=== PATIENT | female | born 1955 | race Caucasian/White ===

== ENCOUNTER → 2023-02-28 10:21 | Outpatient (BNVA) | payer MEDICARE, MEDICAID, SELFPAY | PROVIDERS: PCP Family Medicine; Visit Provider Internal Medicine Cardiovascular Disease | DX: R00.1 Bradycardia, unspecified (principal) | CPT/HCPCS: 99213 ==

== ENCOUNTER → 2023-04-10 12:51 | Outpatient (BNVA) | payer MEDICARE, MEDICAID, SELFPAY | PROVIDERS: PCP Family Medicine; Visit Provider Internal Medicine Cardiovascular Disease | DX: I49.5 Sick sinus syndrome (principal); R55 Syncope and collapse | CPT/HCPCS: 99213 ==

== ENCOUNTER → 2023-04-17 12:48 | Outpatient (BNVA) | payer MEDICARE, MEDICAID, SELFPAY | PROVIDERS: PCP Family Medicine; Visit Provider Thoracic Surgery (Cardiothoracic Vascular Surgery) | DX: I49.5 Sick sinus syndrome (principal) | CPT/HCPCS: 99203 ==

== ENCOUNTER 2023-05-06 09:08 | Day surgery (SDC) | payer MEDICARE, MEDICAID, SELFPAY ==
[2023-05-01 08:37] VITALS: BMI 28.6
[2023-05-01 09:35] LABS: Add Urine Microscopic? NO; Charge for UA Resulting for Rev
[2023-05-01 09:42] LABS: Basophils # 0.1 10^3/uL (0.0-0.1); Basophils % 0.8 %; Eosinophils # 0.3 10^3/uL (0.0-0.8); Eosinophils % 2.4 %; Hematocrit 42.8 % (37.0-47.0); Hemoglobin 13.9 g/dL (11.5-15.3); Lymphocytes # 3.3 10^3/uL (0.8-4.8); Lymphocytes % 31.1 %; Mean Corpuscular HGB Conc 32.5 g/dL (30.0-36.0); Mean Corpuscular Volume 95.3 fl (81-99); Mean Platelet Volume 9.8 fL (7.4-10.4); Monocytes # 0.9 10^3/uL (0.2-0.9); Monocytes % 8.5 %; Neutrophils # 6.05 10^3/uL (1.8-7.7); Neutrophils % 56.6 %; Nucleated Red Blood Cells % 0 %; Platelet Count 224 10^3/cmm (130-400); Red Blood Count 4.49 10^6/uL (4.1-5.3); Red Cell Distribution Width 12.9 % (12.1-15.1); White Blood Count 10.7 10^3/uL (4.0-10.0)
[2023-05-01 09:58] LABS: Bilirubin Urine Neg (Negative); Blood Urine Neg (Negative); Glucose Urine UA Norm (Normal); Ketones Urine Negative (Negative); Leukocyte Esterase Urine Negative (Negative); Nitrate Urine Negative (Negative); Protein Urine Neg (Negative); Urine Appearance Clear (CLEAR); Urine Color Yellow (Yellow); Urobilinogen Urine Norm (Negative); pH Urine 6 (5-7)
[2023-05-01 10:01] LABS: Anion Gap 16.4 (5-19); Blood Urea Nitrogen 16 mg/dL (8-23); Calcium 8.9 mg/dL (8.5-10.5); Carbon Dioxide 25 mmol/L (22-29); Chloride 100 mmol/L (98-107); Glomerular Filtration Rate 71.8 mL/min (90-130); Glucose 122 mg/dL (65-115); Osmolality Calculated 286 mOsm/kg (285-295); Potassium 4.4 mmol/L (3.5-5.1); Sodium 137 mmol/L (136-145)
--- NOTE | 2023-05-01 10:11 | P.ANESASSM_ITS ---
Pre-Anesthetic Assessment Height/Weight: Height 1.65 m Weight 78.018 kg Operation Date: 05/06/23 09:40 Proposed Procedures p Pacemaker Insertion(Not Applicable) - Ryan Tinajero MD Familial anesthetic complications: PONV Was Beta Sania taken within 24 hours: N/A Was Clonidine taken within 24 hours: N/A Social Tobacco and No alcohol Exam alert and oriented x 3 Airway Submandibular: within normal limits Cervical ROM: within normal limits Mallampati: Class II Dentition: false Pulmonary Chronic Obstructive Pulmonary Disease CV/HEM Hypertension SSS GI Gastroesophageal Reflux Disease Anesthetic Plan ASA status: 3 Anesthesia: Choice Other: PONV Medications/Allergies Home Medications Medication Instructions Recorded Confirmed Last Taken Type indomethacin 50 mg capsule 50 mg PO .HS 06/21/21 05/01/23 04/30/23 History omeprazole 20 mg tablet,delayed 20 mg PO DAILY 06/21/21 05/01/23 04/30/23 History release vitamins A,C,B-fcif-rkmzle 4,296 1 cap PO BID 06/21/21 05/01/23 04/30/23 History mcg-226 mg-90 mg capsule (PreserVision AREDS) methylsulfonylmethane 1,000 mg 3,000 mg PO BID 04/10/23 05/01/23 04/30/23 History tablet (MSM) triamterene 37.5 1 cap PO DAILY 04/10/23 05/01/23 04/30/23 History mg-hydrochlorothiazide 25 mg capsule baclofen 10 mg tablet 5 mg PO BID 04/17/23 05/01/23 04/30/23 History sennosides 8.6 mg-docusate sodium 1 tab-cap PO BID 05/01/23 05/01/23 04/30/23 History 50 mg tablet (Senna-S) Allergies Allergy/AdvReac Type Severity Reaction Status Date / Time acetaminophen [From [place]] Allergy Unknown Unknown Verified 05/01/23 08:29 hydrocodone [From [place]] Allergy Unknown Unknown Verified 05/01/23 08:29 Penicillins Allergy Unknown Unknown Verified 05/01/23 08:29 [facility] Anesthesia Medical History Bradycardia Leg cramps Pre-syncope Shortness of breath Sick sinus syndrome Family History Mother CAD (coronary artery disease) Diabetes Father CAD (coronary artery disease) Brother CAD (coronary artery disease) Diabetes Hypertension Grandmother CHF (congestive heart failure) Lung disease Grandfather CHF (congestive heart failure) Sister Diabetes Other Stroke Social History Smoking and tobacco status: current every day smoker cigarettes Packs smoked per day: 1 Years cigarettes smoked: 50 Alcohol intake: never Substance/Drug Use: never Lives independently: Yes Household members: none Marital status: Number of children: 1 Pets and animals: Yes Pets & animals: cat(s) and dog(s) Data Anesthesia 05/01/23 08:56 05/01/23 08:56 Short CBC 05/01/23 Range/Units 08:56 WBC 10.7 H (4.0-10.0) 10^3/uL Hgb 13.9 (11.5-15.3) g/dL Hct 42.8 (37.0-47.0) % MCV 95.3 (81-99) fl Plt Count 224 (130-400) 10^3/cmm Neut % (Auto) 56.6 % Neut # (Auto) 6.05 (1.8-7.7) 10^3/uL BMP 05/01/23 08:56 Sodium 137 Potassium 4.4 Chloride 100 Carbon Dioxide 25 BUN 16 Creatinine 0.8 Glucose 122 H Calcium 8.9 Urine 05/01/23 Range/Units 08:56 Urine Color Yellow (Yellow) Urine Appearance Clear (CLEAR) Urine pH 6 (5-7) Ur Specific [place] 1.020 (1.005-1.030) Urine Protein Neg (Negative) Urine Glucose (UA) Norm (Normal) Urine Ketones Negative (Negative) Urine Nitrate Negative (Negative) Urine Bilirubin Neg (Negative) Ur Leukocyte Esterase Negative (Negative) Cardiac Studies: Cardiac Event Monitor 03/20/23
[2023-05-06] VITALS (12 sets, daily range): BP systolic 102–161; BP diastolic 53–81; PULSE 57–60; RESP 16–24; TEMP 36.1–36.6; O2SAT 93–97
--- NOTE | 2023-05-06 09:12 | SC_ITS ---
WS: [id number] EXAMINATION: C-arm FL for Pacemaker ORDER DATE: 05/06/2023 9:12 AM REASON FOR EXAM: Pacemaker and leads implantation COMPARISON: None available. FLUOROSCOPY TIME: 491 seconds # OF SPOT FILMS: 2 FINDINGS: Pacemaker leads from the left overlying the right atrium and right ventricular apex. SC/C-arm FL for Pacemaker IMPRESSION: Pacemaker lead positions as above.
[2023-05-06] MEDS: sodium chloride 0.9% 1,000 ML 30 ML IV (09:33)
[2023-05-06] MEDS: scopolamine 1.5 Patch 1 PATCH TRANSDERMA (09:37)
--- NOTE | 2023-05-06 11:43 | P.ANESUD_ITS ---
Pre-Anesthetic Update Pre-Anesthetic Assessment: Date of Surgery/Procedure: 05/06/23 Preop Julieta gnosis: Sick sinus syndrome Proposed Procedure: Operation Date: 05/06/23 11:00 Proposed Procedures p Pacemaker Insertion(Not Applicable) - Ryan Tinajero MD Any changes to Pre-Anesthetic Assessment?: No Last Intake: Intake Last Liquid Date 05/05/23 Last Liquid Time 23:00 Last Solid Date 05/05/23 Last Solid Time 21:00 Vitals: Temperature 98 F 05/06/23 09:25 Temperature Source Temporal Artery S can 05/06/23 09:25 Pulse Rate 57 L 05/06/23 09:25 Respiratory Rate 16 05/06/23 09:25 Blood Pressure 161/81 05/06/23 09:25 Blood Pressure Jemima n 107 05/06/23 09:25 Pulse Oximetry 97 05/06/23 09:25 Oxygen Delivery Me thod Room Air 05/06/23 09:25 Exam: Pre-Anes Outpt Exam: alert, oriented x 3, clear to auscultation bilaterally and regular rate & rhythm Cardiac Studies: Cardiac Event Monitor 03/20/23
--- NOTE | 2023-05-06 12:14 | W.PM.OPSUD ---
Surgery/Procedure H&P Update DATE OF PROCEDURE: May 06, 2023 DATE H&P PERFORMED: 04/17/23 H&P UPDATE INFORMATION: I have reviewed H&P completed within last 30 days, I have examined patient prior to procedure and No changes to prior documentation CHANGES TO PREVIOUS DOCUMENTATION: I again carefully discussed details, risk, and rationale for pacemaker implantation for sick sinus syndrome. Particular risk related to , stroke, heart attack, major bleeding, infection (which might require device explantation), and unique to this procedure; pneumothorax, migration of the leads requiring revision, need for long-term surveillance were all carefully discussed. She and family wished to proceed. PREOP DIAGNOSIS: Sick sinus syndrome PLANNED PROCEDURE: Operation Date: 05/06/23 11:00 Proposed Procedures p Pacemaker Insertion(Not Applicable) - Ryan Tinajero MD
[2023-05-06] MEDS: vancomycin 1,500 MG/300 ML PIGGYBACK 200 MG IV (12:50)
[2023-05-06] MEDS: lidocaine 1% INJ 10 mL (per mL) 20 ML XX (13:17)
[2023-05-06] MEDS: vancomycin 1,000 MG SDV 1000 MG IRRIGATION (13:29)
--- NOTE | 2023-05-06 15:08 | P.OP_ITS ---
Operative Report Date of procedure: May 06, 2023 Pre-op diagnosis: Preop Diagnosis Sick sinus syndrome Post-op diagnosis: same Procedure done: Dual-chamber pacemaker implantation Implants: Medtronic pacing generator Atrial and ventricular leads Pathology: none sent Surgeon: Ryna Tinajero Anesthesia: MAC and Local Complications: None: Post procedure chest x-ray pending Condition: stable Disposition: PACU Brief History: Ms. Hughes is a very pleasant 68-year-old female with progressive fatigue and documentation of sick sinus syndrome with documented sinus pauses of up to 4 seconds. Pacemaker implantation has been recommended. She underwent careful outpatient evaluation. She presents today for planned pacemaker implantation. Details of risk of the procedure were carefully and frankly discussed including potential for major bleeding, pneumothorax, pain, infection requiring device removal, early or delayed lead migration requiring revision, and need for long- term surveillance. All appropriate consents have been signed. She wishes to proceed. Procedure: Procedure: Ms. Hughes was taken to the OR suite and placed in the supine position over a shoulder roll. She received conscious sedation with continuous anesthesia monitoring by. Her entire chest was sterilely prepped and draped. 1% lidocaine was infiltrated in the left subclavicular region. While in Trendelenburg position, utilizing modified seldinger technique, 2 guidewires were placed in the left subclavian vein. This was confirmed in position by fluoroscopy. Next, after infiltration with lidocaine, a subcutaneous pocket was created beginning from the exit point of the guidewire and extending laterally and inferiorly. Cautery was utilized to create the pocket just above the pectoralis musculature. Hemostasis was confirmed. An antibiotic-soaked sponge was placed in the wound. A dilator and tear-away sheath was placed over the first guidewire and advanced under fluoroscopy. Guidewire and dilator were removed. Next using a combination of curved and straight stylettes, the right ventricular lead was placed in position by fluoroscopy. The distal screw was extended. Interrogation was then performed confirming appropriate parameters. The tear-away sheath was then removed and the ventricular lead was sewn to the floor of the subcutaneous pocket. In a similar fashion dilator and tear-away sheath was placed over the 2nd guide wire and advanced under fluoroscopy. Guidewire and dilator were removed. Straight and curved stylettes were used to position the right atrial lead with fluoroscopy. Distal screw was extended. Interrogation was then performed. Tear-away sheath was then removed. Atrial lead was secured to the floor of the subcutaneous pocket. Pocket was irrigated with antibiotic solution and hemostasis again confirmed. Pacing generator was brought into the field, and after confirmation of hemostasis in the subcutaneous pocket, the leads were connected to the generator with appropriate capture. The entire system was interrogated by fluoroscopy. Leads and generator were secured in the pocket. Sponge and needle count was correct. The wound was then closed in 2 layers of 3-0 Vicryl suture. Skin was reapproximated in a subcuticular manner with 4-0 Monocryl suture. A pressure dressing was applied. The left arm was placed in a sling. The patient had equal breath sounds bilaterally. She was then transferred to the PACU, where chest x-ray is currently pending. I did breastfeeding peer counselor with the family at the completion of the procedure. Following are the specifics of this system: Right ventricular lead is 52 cm and model 5076. Serial number [id number] Right atrial lead is 45 cm and is model 5076. Serial number [id number]. Ventricular lead had sensing of 9.2 mV with an impedance of 836 ohms. Threshold was 1.3 V Atrial lead had sensing of 3.3 mV with an impedance of 475 ohms. Threshold was 1.25 V. Navera generator: Model # [id number] Serial # [id number]
--- NOTE | 2023-05-06 15:30 | XRR_ITS ---
PROCEDURE INFORMATION: Exam: XR Chest Exam date and time: 05/06/2023 3:21 PM Age: 68 years old Clinical indication: Device placement; Cardiac pacemaker lead placement or adjustment; Prior surgery; Surgery date: Post-operative (0-2 days); Surgery type: Post pacer TECHNIQUE: Imaging protocol: Radiologic exam of the chest. Views: 1 view. COMPARISON: OT C-arm FL for Pacemaker 05/06/2023 12:17 PM FINDINGS: Tubes, catheters and devices: There is a pacemaker with the lead tips in the right atrium and ventricle. Lungs: Unremarkable. No consolidation. Pleural spaces: Unremarkable. No pleural effusion. No pneumothorax. Heart/Mediastinum: Unremarkable. No cardiomegaly. Bones/joints: Unremarkable. XR/XR chest 1V portable [id number] IMPRESSION: There is a pacemaker with the lead tips in the right atrium and ventricle.
--- NOTE | 2023-05-06 15:40 | ANE.PACU2 ---
Inpatient post-anesthesia follow up: Airway intact: Yes Vital signs: Temperature 97 F Pulse Rate 60 Respiratory Rate 16 Blood Pressure 106/69 Pulse Oximetry 93 Oxygen Delivery Me thod Room Air Oxygen Flow Rate Fraction of Inspir ed Oxygen Hydration adequate: Yes Nausea and vomiting: No Pain level: 1 Mental status: Baseline
[2023-05-06] MEDS: baclofen 10 mg Tablet 5 MG PO (17:17)
[2023-05-06] MEDS: alum-mag-hydroxide-sime 30 mL UDC PO (17:17)
[2023-05-06] MEDS: TRAMadol 50 mg Tablet PO (20:25)
[2023-05-07 00:19] VITALS: BP 129/83; PULSE 60; RESP 15; TEMP 37.3; O2SAT 92
[2023-05-07 04:00] VITALS: BP 102/60; PULSE 61; RESP 18; TEMP 37.1; O2SAT 93
--- NOTE | 2023-05-07 06:27 | PM.DCS ---
Discharge Providers Date of Admission: 05/06/23 15:14 Date of Discharge: May 07, 2023 Attending Provider at Admission: Ryan Tinajero MD Attending Provider at Discharge: Ryan Tinajero MD Primary Care Provider: Niki Delaney MD Reason for Visit Reason for Visit: Brief History: 68-year-old female admitted for pacemaker insertion secondary to sick sinus syndrome Hospital Course Hospital Course Ms. Hughes was electively admitted and underwent dual-chamber pacemaker implantation secondary to sick sinus syndrome. Postop day, she convalesced on the CSU where she has remained stable. She rested well last night. She currently has a atrial paced rhythm at 66 bpm. Surgical site is clean and dry. Minimal swelling and no evidence for fluid collection. Minimal ecchymosis. Pain is under good control. Vital signs are stable. She will be discharged home today in stable condition. She will follow-up with pacemaker clinic in approximately 1 week. Physical Exam Chest: OTHER: Surgical site clean and dry. No signs of substantial swelling. No evidence for fluid collection. Minimal ecchymosis. Resp: COMMON NORMALS: normal respiratory effort and clear to auscultation bilaterally AUSCULTATION: clear to auscultation bilaterally Cardio: COMMON NORMALS: regular rate, regular rhythm and No murmurs present (Cardio) RATE: regular rate RHYTHM: regular rhythm Extremity: COMMON NORMALS: no clubbing, cyanosis or edema Discharge Data Studies Completed and Pending Completed Studies During Hospitalization Category Date Time Status XR chest 1V portable [id number] Routine Exams 05/06/23 15:30 Completed Radiology Impressions C-Arm Fluoroscopy 05/06/23 09:12 IMPRESSION: Pacemaker lead positions as above. Chest X-Ray 05/06/23 15:30 IMPRESSION: There is a pacemaker with the lead tips in the right atrium and ventricle. Laboratory Results WBC 10.7 10^3/uL (4.0-10.0) H 05/01/23 08:56 RBC 4.49 10^6/uL (4.1-5.3) 05/01/23 08:56 Hgb 13.9 g/dL (11.5-15.3) 05/01/23 08:56 Hct 42.8 % (37.0-47.0) 05/01/23 08:56 MCV 95.3 fl (81-99) 05/01/23 08:56 MCH 31.0 pg (28.0-34.0) 05/01/23 08:56 MCHC 32.5 g/dL (30.0-36.0) 05/01/23 08:56 RDW 12.9 % (12.1-15.1) 05/01/23 08:56 Plt Count 224 10^3/cmm (130-400) 05/01/23 08:56 MPV 9.8 fL (7.4-10.4) 05/01/23 08:56 Neut % (Auto) 56.6 % 05/01/23 08:56 Lymph % (Auto) 31.1 % 05/01/23 08:56 [place] % (Auto) 8.5 % 05/01/23 08:56 Eos % (Auto) 2.4 % 05/01/23 08:56 Baso % (Auto) 0.8 % 05/01/23 08:56 Neut # (Auto) 6.05 10^3/uL (1.8-7.7) 05/01/23 08:56 Lymph # (Auto) 3.3 10^3/uL (0.8-4.8) 05/01/23 08:56 [place] # (Auto) 0.9 10^3/uL (0.2-0.9) 05/01/23 08:56 Eos # (Auto) 0.3 10^3/uL (0.0-0.8) 05/01/23 08:56 Baso # (Auto) 0.1 10^3/uL (0.0-0.1) 05/01/23 08:56 Nucleated RBC % (auto) 0 % 05/01/23 08:56 Nucleated RBCs # 0.0 /100WBC 05/01/23 08:56 Sodium 137 mmol/L (136-145) 05/01/23 08:56 Potassium 4.4 mmol/L (3.5-5.1) 05/01/23 08:56 Chloride 100 mmol/L (98-107) 05/01/23 08:56 Carbon Dioxide 25 mmol/L (22-29) 05/01/23 08:56 Anion Gap 16.4 (5-19) 05/01/23 08:56 BUN 16 mg/dL (8-23) 05/01/23 08:56 Creatinine 0.8 mg/dL (0.5-0.9) 05/01/23 08:56 GFR Calculation 71.8 mL/min (90-130) L 05/01/23 08:56 Glucose 122 mg/dL (65-115) H 05/01/23 08:56 Calculated Osmolality 286 mOsm/kg (285-295) 05/01/23 08:56 Calcium 8.9 mg/dL (8.5-10.5) 05/01/23 08:56 Urine Color Yellow (Yellow) 05/01/23 08:56 Urine Appearance Clear (CLEAR) 05/01/23 08:56 Urine pH 6 (5-7) 05/01/23 08:56 Ur Specific [place] 1.020 (1.005-1.030) 05/01/23 08:56 Urine Protein Neg (Negative) 05/01/23 08:56 Urine Glucose (UA) Norm (Normal) 05/01/23 08:56 Urine Ketones Negative (Negative) 05/01/23 08:56 Urine Blood Neg (Negative) 05/01/23 08:56 Urine Nitrate Negative (Negative) 05/01/23 08:56 Urine Bilirubin Neg (Negative) 05/01/23 08:56 Urine Urobilinogen Norm mg/dL (Negative) 05/01/23 08:56 Ur Leukocyte Esterase Negative (Negative) 05/01/23 08:56 Vitals Last Vital Signs Temp 98.7 F 05/07/23 04:00 Pulse 61 05/07/23 04:00 Resp 18 05/07/23 04:00 BP 102/60 05/07/23 04:00 Pulse Ox 93 05/07/23 04:00 O2 Del Method Room Air 05/07/23 04:00 Discharge Plan Discharge Patient Disposition: Home Condition: Stable Prescriptions: New tramadol 50 mg tablet 50 mg PO TID PRN (Reason: pain) Qty: 12 0RF sulfamethoxazole-trimethoprim [Bactrim DS] 800-160 mg tablet 1 tab PO BID Qty: 6 0RF Continued PreserVision AREDS [id number],[id number] vyvg-ut-andp capsule 1 cap PO BID omeprazole 20 mg tablet,delayed release (DR/EC) 20 mg PO DAILY indomethacin 50 mg capsule 50 mg PO .HS Rx Instructions: administer with food or milk methylsulfonylmethane [MSM] 1,000 mg tablet 3,000 mg PO BID baclofen 10 mg tablet 5 mg PO BID triamterene-hydrochlorothiazid 37.5-25 mg capsule 1 cap PO DAILY sennosides-docusate sodium [Senna-S] 8.6-50 mg Tablet 1 tab-cap PO BID Discharge Orders: Discharge Order (Routine); Ordered 05/07/23 Ordered By: Ryan Tinajero Referrals: [facility] [Provider Group] - 05/16/23 11:00 am (Pacemaker clinic) Discharge Diet: Usual diet Discharge Activity: Limit activity as instructed Patient Instructions: Opioid Safety Activity Restrictions/Additional Instructions: May remove bandage in 2 days May begin daily showers in 3 days Dry incision carefully after showers. May re-cover if desired to prevent irritation from clothing. No swimming or tub baths x 2 weeks No ointments on incision Report drainage, redness, heat, fever, increased pain, or swelling to clinic Do not lift left arm overhead or lift more than 5 pounds for the next 2 weeks. Take antibiotics until completed. Discharge Attestations Time Spent in Discharge Care*: less than 30 min Specific Discharge Activities: educating patient, educating and/or supporting family/caregiver, discussing with bilingual patient support caseworker/social workers/dc planners, documenting/other paperwork and evaluating patient/reviewing data Status at Discharge: Cognitive status at discharge: cognitively intact, Behavioral status at discharge: cooperative, Functional status at discharge: independent ambulation, Overall status at discharge: patient is back to baseline Quality Metrics Clinical Quality Measures [ No reported AMI, CVA or VTE this stay] Coding Level of Care Code Acute Code for Chg Fwd Diagnoses
[2023-05-07 07:36] VITALS: BP 129/74; PULSE 60; RESP 16; TEMP 37; O2SAT 94
[2023-05-07 08:06] VITALS: BP 129/74; PULSE 60; RESP 16; TEMP 37; O2SAT 94
== END 2023-05-07 08:07 | disposition home or self-care (01) ==
LOC: OR 09:09 → CSU 15:15
PROVIDERS: PCP Family Medicine; Visit Provider Thoracic Surgery (Cardiothoracic Vascular Surgery)
PROC: (CPT 33208; principal; 2023-05-06 10:50)
DX: I49.5 Sick sinus syndrome (principal); J44.9 Chronic obstructive pulmonary disease, unspecified; I10 Essential (primary) hypertension; K21.9 Gastro-esophageal reflux disease without esophagitis; F17.210 Nicotine dependence, cigarettes, uncomplicated
CPT/HCPCS: 33208; 36415; 71045; 76000; 80048; 81003; 85025; 96376; C1779; C1786; G0378; J1200; J2250; J2371; J2405; J2704; J3010; J3370; J7030

== ENCOUNTER → 2023-05-16 11:21 | Outpatient (BNVA) | payer MEDICARE, MEDICAID, SELFPAY | PROVIDERS: PCP Family Medicine; Visit Provider Nurse Practitioner Family | DX: I10 Essential (primary) hypertension (principal); Z95.0 Presence of cardiac pacemaker; F17.210 Nicotine dependence, cigarettes, uncomplicated | CPT/HCPCS: 99214 ==

== ENCOUNTER → 2023-06-03 11:13 | Outpatient (BNVA) | payer MEDICARE, MEDICAID, SELFPAY | PROVIDERS: PCP Family Medicine; Visit Provider Internal Medicine Cardiovascular Disease | DX: I10 Essential (primary) hypertension (principal); Z95.0 Presence of cardiac pacemaker; R06.02 Shortness of breath; R00.1 Bradycardia, unspecified; F17.210 Nicotine dependence, cigarettes, uncomplicated | CPT/HCPCS: 99213 ==

== ENCOUNTER → 2023-09-05 10:44 | Outpatient (BNVA) | payer MEDICARE, MEDICAID, SELFPAY | PROVIDERS: PCP Family Medicine; Visit Provider Internal Medicine Cardiovascular Disease | DX: Z45.010 Encounter for checking and testing of cardiac pacemaker pulse generator [battery] (principal) | CPT/HCPCS: 93296 ==

== ENCOUNTER → 2023-12-09 10:35 | Outpatient (BNVA) | payer MEDICARE, MEDICAID, SELFPAY | PROVIDERS: PCP Family Medicine; Visit Provider Internal Medicine Cardiovascular Disease | DX: R07.89 Other chest pain (principal); R00.1 Bradycardia, unspecified; Z95.0 Presence of cardiac pacemaker; I10 Essential (primary) hypertension; F17.210 Nicotine dependence, cigarettes, uncomplicated | CPT/HCPCS: 99213 ==

== ENCOUNTER → 2024-04-14 09:50 | Outpatient (BNVA) | payer MEDICARE, MEDICAID, SELFPAY | PROVIDERS: PCP Family Medicine; Visit Provider Internal Medicine Cardiovascular Disease | DX: R55 Syncope and collapse (principal); Z95.0 Presence of cardiac pacemaker; I10 Essential (primary) hypertension; I49.5 Sick sinus syndrome; Z72.0 Tobacco use | CPT/HCPCS: 99215 ==

== ENCOUNTER → 2024-07-21 10:12 | Outpatient (BNVA) | payer MEDICARE, MEDICAID, SELFPAY | PROVIDERS: PCP Family Medicine; Visit Provider Internal Medicine Cardiovascular Disease | DX: Z45.018 Encounter for adjustment and management of other part of cardiac pacemaker (principal) | CPT/HCPCS: 93296 ==

== ENCOUNTER → 2024-12-31 10:42 | Outpatient (BNVA) | payer MEDICARE, MEDICAID, SELFPAY | PROVIDERS: PCP Family Medicine; Visit Provider Nurse Practitioner Family | DX: I10 Essential (primary) hypertension (principal); F17.210 Nicotine dependence, cigarettes, uncomplicated; I49.5 Sick sinus syndrome; Z95.0 Presence of cardiac pacemaker; R00.1 Bradycardia, unspecified; M25.519 Pain in unspecified shoulder | CPT/HCPCS: 99213 ==

== ENCOUNTER → 2025-01-19 10:43 | Outpatient (BNVA) | payer MEDICARE, MEDICAID, SELFPAY | PROVIDERS: PCP Family Medicine; Visit Provider Internal Medicine | DX: Z45.018 Encounter for adjustment and management of other part of cardiac pacemaker (principal) | CPT/HCPCS: 93296 ==